=== PATIENT | female | born 1995 ===

== ENCOUNTER 2024-02-18 00:32 | Emergency (ER) | payer MEDICAID, SELFPAY ==
[2024-02-18 00:41] VITALS: BP 95/73; PULSE 72; RESP 16; TEMP 36.7; O2SAT 92; BMI 36.5
[2024-02-18 00:56] LABS: MANUAL DIFF FLAG NO
[2024-02-18 00:58] LABS: Basophils Percent Auto 0.2 % (0-2); Eosinophils Absolute Auto 0.2 X10*3/uL (0.0-0.4); Eosinophils Percent Auto 1.7 % (0-4); Hematocrit 35.4 % (37.0-47.0); Hemoglobin 12.3 g/dl (12.0-16.0); Imm Gran Abs Auto 0.04 X10*3/uL (0.00-0.03); Imm Gran Pct Auto 0.3 % (0.0-0.4); Lymphocytes Absolute Auto 2.5 X10*3/uL (1.2-4.9); Lymphocytes Percent Auto 18.5 % (20-40); Mean Corpuscular HGB Conc 34.7 g/dl (31.0-35.0); Mean Corpuscular Hemoglobin 32.3 pg (27.0-33.0); Mean Corpuscular Volume 92.9 fL (80.0-98.0); Mean Platelet Volume 10.1 fL (9.4-12.3); Monocytes Absolute Auto 1.4 X10*3/uL (0.1-1.2); Monocytes Percent Auto 10.2 % (2-11); Neutrophils Absolute Auto 9.2 x10*3/uL (2.0-8.3); Neutrophils Percent Auto 69.1 % (45-73); Platelet Count 281 X10*3/uL (160-400); Red Blood Count 3.81 X10*6/uL (4.20-5.50); Red Cell Distribution Width 13.6 % (11.0-16.0); White Blood Count 13.3 X10*3/uL (4.8-10.8)
[2024-02-18 01:08] LABS: IDNOW Serial# 08D9AD1C; Strep A Nucleic Acid Negative (Negative)
[2024-02-18 01:22] LABS: Alanine Aminotransferase 14 U/L (0-31); Albumin Level 3.8 g/dL (3.5-5.0); Alkaline Phosphatase 65 U/L (39-117); Anion Gap 14 (12-20); Aspartate Amino Transferase 15 U/L (5-31); Bilirubin Total 0.2 mg/dL (0.0-1.0); Blood Urea Nitrogen 21 mg/dL (9-16); Calcium 8.8 mg/dL (8.4-10.2); Carbon Dioxide 21 mmol/L (22-29); Chloride 104 mmol/L (96-108); Creatinine Clr Calc Pharmacy 115.5; Estimated Glomerular Filt Rate > 60; Glucose Random 92 mg/dL (60-115); Potassium 3.6 mmol/L (3.3-5.1); Sodium 135 mmol/L (135-145); Total Protein 7.3 g/dL (6.5-8.0)
[2024-02-18 01:36] LABS: Influenza A PCR NEGATIVE (Negative); Influenza B PCR NEGATIVE (Negative); Resp Syncy Virus RNA Qual PCR NEGATIVE (Negative); SARS COV2 PCR INHOUSE NEGATIVE (Negative)
--- NOTE | 2024-02-18 02:08 | ED_ITS ---
HPI - URI/Sore Throat General Chief Complaint: Upper Respiratory Symptoms Stated Complaint: sore throat/head hurts Time Seen by Provider: 02/18/24 01:48 Source: patient Mode of arrival: ambulatory Limitations: no limitations History of Present Illness HPI Narrative: Patient complaining of sore throat for last 1 week getting worse low-grade fever occasional cough no shortness of breath no rhinorrhea Related Data Allergies Allergy/AdvReac Type Severity Reaction Status Date / Time aspirin Allergy Rash Verified 02/18/24 00:41 Review of Systems 2 Review of Systems: Yes all other systems are reviewed and are negative [facility] Social History Social History Advance Directives: No Advance Directives Information Provided: Yes Physical Exam 2 Vital Signs: Vital Signs: Last Vital Signs Temp 98.1 F 02/18/24 00:41 Pulse 72 02/18/24 00:41 Resp 16 02/18/24 00:41 BP 95/73 02/18/24 00:41 Pulse Ox 92 02/18/24 00:41 O2 Del Method Room Air 02/18/24 00:41 BMI result Body Mass Index 36.5 Appearance: Alert. Oriented X3. No acute distress. ENT: Pharynx erythematous with enlarged tonsils Oral Mucosa moist Neck: Normal inspection. Neck supple. CVS: Normal heart rate and rhythm. Pulses normal. Respiratory: No respiratory distress. Equal air entry bilateral, no wheezing/rales/rhonchi Abdomen: Soft and nontender. Skin: Skin warm and dry. Normal skin color. Normal skin turgor. Neuro: Oriented X 3. Medical Decision Making Lab Data [facility] Lab Attestation statement: I reviewed the patient's lab results. 02/18/24 00:51 02/18/24 00:51 Labs: Lab Results 02/18/24 Range/Units 00:51 WBC 13.3 H (4.8-10.8) X10*3/uL RBC 3.81 L (4.20-5.50) X10*6/uL Hgb 12.3 (12.0-16.0) g/dl Hct 35.4 L (37.0-47.0) % MCV 92.9 (80.0-98.0) fL MCH 32.3 (27.0-33.0) pg MCHC 34.7 (31.0-35.0) g/dl RDW 13.6 (11.0-16.0) % Plt Count 281 (160-400) X10*3/uL MPV 10.1 (9.4-12.3) fL Immature Gran % (Auto) 0.3 (0.0-0.4) % Neut % (Auto) 69.1 (45-73) % Lymph % (Auto) 18.5 L (20-40) % [place] % (Auto) 10.2 (2-11) % Eos % (Auto) 1.7 (0-4) % Baso % (Auto) 0.2 (0-2) % Lymph # (Auto) 2.5 (1.2-4.9) X10*3/uL [place] # (Auto) 1.4 H (0.1-1.2) X10*3/uL Eos # (Auto) 0.2 (0.0-0.4) X10*3/uL Baso # (Auto) 0.0 (0.0-0.2) X10*3/uL Abs Immat Gran (auto) 0.04 H (0.00-0.03) X10*3/uL Absolute Neuts (auto) 9.2 H (2.0-8.3) x10*3/uL Absolute Nucleated RBC 0.000 (0.0-0.012) X10*3/uL Nucleated RBC % (auto) 0.0 (0.0-0.2) /100WBC Sodium 135 (135-145) mmol/L Potassium 3.6 (3.3-5.1) mmol/L Chloride 104 (96-108) mmol/L Carbon Dioxide 21 L (22-29) mmol/L Anion Gap 14 (12-20) BUN 21 H (9-16) mg/dL Creatinine 0.78 (0.5-1.4) mg/dL Estim Creat Clear Calc 115.5 Estimated GFR > 60 Random Glucose 92 (60-115) mg/dL Calcium 8.8 (8.4-10.2) mg/dL Total Bilirubin 0.2 (0.0-1.0) mg/dL AST 15 (5-31) U/L ALT 14 (0-31) U/L Alkaline Phosphatase 65 (39-117) U/L Total Protein 7.3 (6.5-8.0) g/dL Albumin 3.8 (3.5-5.0) g/dL Influenza Type A (PCR) NEGATIVE (Negative) Influenza Type B (PCR) NEGATIVE (Negative) RSV RNA Qual (PCR) NEGATIVE (Negative) SARS-CoV-2 RNA (RT-PCR) NEGATIVE (Negative) S. pyogenes GrpA MERLE Negative (Negative) Discharge Plan Discharge Clinical Impression: Pharyngitis Patient Disposition: Home, Self-Care Instructions: Pharyngitis (ED) Additional Instructions: Drink plenty of fluids Take antibiotic as prescribed Follow with PCP if not better Print Language: Danish
[2024-02-18 02:55] LABS: Monotest Negative (Negative)
[2024-02-18] MEDS: Amoxicillin/Potassium Clav 875 MG TABLET PO (03:18)
[2024-02-18 03:20] VITALS: BP 100/60; PULSE 70; RESP 16; TEMP 36.8; O2SAT 98
== END 2024-02-18 03:20 | disposition home or self-care (01) ==
PROVIDERS: Emergency Provider Internal Medicine
DX: J02.9 Acute pharyngitis, unspecified (principal); R05.9 Cough, unspecified; Z03.818 Encounter for observation for suspected exposure to other biological agents ruled out
CPT/HCPCS: 0241U; 36415; 80053; 85025; 86308; 87651; 99282; 99283

== ENCOUNTER 2024-07-03 16:59 | Emergency (ER) | payer MEDICAID, SELFPAY ==
--- NOTE | ~2024-07-03 | CT_ITS ---
EXAMINATION: CT ABDOMEN AND PELVIS WITHOUT CONTRAST CLINICAL INFORMATION: Left flank pain and renal colic. COMPARISON: None available. TECHNIQUE: Multidetector volumetric imaging was performed from the superior aspect of the liver through the pubic symphysis. Sagittal and coronal reformatted images were obtained on the technologist's workstation. This CT examination was performed using dose optimization techniques as appropriate, variously including the following: *Automated exposure control *Adjustment of mA and/or kV according to patient size (this includes techniques or standardized protocols for targeted exams where dose is matched to indication/reason for exam; i.e. extremities or head) *Use of iterative reconstruction technique DLP: 526 mGy-cm FINDINGS: LUNG BASES: There is bibasilar mosaic perfusion. LIVER, GALLBLADDER, AND BILIARY TREE: The liver is normal in size, shape, and attenuation. No focal hepatic lesion or biliary ductal dilatation is present. The gallbladder is unremarkable with no evidence of radiopaque gallstones, gallbladder wall thickening, or obvious pericholecystic inflammatory changes. PANCREAS: Unremarkable. SPLEEN: Unremarkable. ADRENAL GLANDS: Unremarkable. KIDNEYS AND URETERS: The kidneys are normal in size, shape, and attenuation. No right hydronephrosis, hydroureter, or calculi seen. No right perinephric stranding. There is moderate left hydronephrosis and pelviectasis secondary to a 5 mm calculus at the left ureteropelvic junction (2:40). There is vigorous left perinephric and peripelvic stranding. BLADDER: Unremarkable. GASTROINTESTINAL TRACT: There is a moderate stool burden. No obstruction, free intraperitoneal air or abscess is seen. There is no focal bowel wall thickening. No diverticulosis or diverticulitis is seen. The vermiform appendix is not identified with certainty; however, there is no finding to suggest appendicitis. ABDOMINAL WALL: There is a mild diastases rectus. There is a tiny fat-containing umbilical hernia. There is a small fat-containing left inguinal hernia LYMPH NODES: There are shotty, nonpathologically enlarged periportal, mesenteric, pericecal, para-aortic and bilateral inguinal lymph nodes. One of the largest of these is located in the left perinephric region, with a short axis diameter of 7 mm (2:39). No sizable abdominopelvic lymphadenopathy is seen. VASCULAR: Unremarkable. PELVIC VISCERA: The uterus and adnexa are unremarkable. A 2.6 cm benign, simple left ovarian cyst is seen, with precontrast Hounsfield value of 10.5 units. OSSEOUS STRUCTURES: Unremarkable. CT/CT abdomen pelvis wo IV con IMPRESSION: 1. There is moderate left hydronephrosis and pelviectasis secondary to a 5 mm calculus at the left ureteropelvic junction. 2. There are shotty abdominopelvic lymph nodes, as detailed above. These are nonspecific and should be managed on a clinical basis. No sizable abdominopelvic lymphadenopathy is seen. 3. There is a mosaic attenuation pattern at the bilateral lung bases, which can be associated with obstructive small airways disease. Fleischner guidelines were followed. Electronically signed by: Amando Mariano MD 07/03/2024 08:51 PM EDT RP
[2024-07-03 18:01] VITALS: BP 138/77; PULSE 102; RESP 16; TEMP 37.3; O2SAT 100; BMI 28.8
--- NOTE | 2024-07-03 18:11 | ED.GENADULT ---
HPI - General Adult General Chief complaint: General Medical Stated complaint: headache, teeth pain, nausea Related Data Previous Rx's ?Medication ?Instructions ?Recorded amoxicillin 875 mg-potassium 1 tab PO BID #20 tabs 02/18/24 clavulanate 125 mg tablet cefuroxime axetil 250 mg tablet 250 mg PO BID 7 days #14 tabs 07/04/24 ibuprofen 600 mg tablet 600 mg PO Q6H PRN fever or pain 07/04/24 #30 tabs oxycodone 5 mg tablet 5 mg PO Q6H PRN pain #20 tabs 07/04/24 tamsulosin 0.4 mg capsule (Flomax) 0.4 mg PO BEDTIME #7 caps 07/04/24 Allergies Allergy/AdvReac Type Severity Reaction Status Date / Time aspirin Allergy Rash Verified 07/04/24 04:53 [facility] Social History Social History Alcohol intake: current Alcohol intake frequency: a few times a month Smoked in Last 30 Days: No Use of substances other than those prescribed or required for medical reasons: No Advance Directives: No Do you have a plan to hurt others: No Plan Physical Exam ED Vital Signs: Vital Signs - 24 hr 07/03/24 18:01 07/03/24 20:33 Temperature 99.1 F 98.6 F Pulse Rate 102 H 111 H Respiratory Rate 16 16 Blood Pressure 138/77 143/86 H Pulse Oximetry 100 Oxygen Delivery Method Room Air BMI result Body Mass Index 28.8 Course Course Course Narrative: Rapid medical exam performed by Selena Melendez PA-C. 28-year-old female presents with left flank pain x1 day. Pain over left flank radiates to low back. Increased dysuria, urinary frequency, and a headache. Denies obvious hematuria, discoloration of urine, or history of prior kidney stones. On exam, the patient's abdomen is soft, nondistended nontender. She is overall well in appearance. Ordering a CT scan, a dry scan, to rule out renal colic. Screening basic labs, urinalysis and . Patient will return to the weight room pending her full assessment. Reevaluation(s) Reevaluation #1: The patient left without completing their assessment Medical Decision Making Lab Data 07/03/24 18:27 07/03/24 18:27 Labs: Lab Results 07/03/24 Range/Units 18:27 WBC 13.5 H (4.8-10.8) X10*3/uL RBC 4.10 L (4.20-5.50) X10*6/uL Hgb 11.7 L (12.0-16.0) g/dl Hct 33.6 L (37.0-47.0) % MCV 82.0 (80.0-98.0) fL MCH 28.5 (27.0-33.0) pg MCHC 34.8 (31.0-35.0) g/dl RDW 14.6 (11.0-16.0) % Plt Count 217 (160-400) X10*3/uL MPV 10.7 (9.4-12.3) fL Immature Gran % (Auto) 0.4 (0.0-0.4) % Neut % (Auto) 85.1 H (45-73) % Lymph % (Auto) 9.6 L (20-40) % [place] % (Auto) 3.8 (2-11) % Eos % (Auto) 0.7 (0-4) % Baso % (Auto) 0.4 (0-2) % Lymph # (Auto) 1.3 (1.2-4.9) X10*3/uL [place] # (Auto) 0.5 (0.1-1.2) X10*3/uL Eos # (Auto) 0.1 (0.0-0.4) X10*3/uL Baso # (Auto) 0.1 (0.0-0.2) X10*3/uL Abs Immat Gran (auto) 0.05 H (0.00-0.03) X10*3/uL Absolute Neuts (auto) 11.5 H (2.0-8.3) x10*3/uL Absolute Nucleated RBC 0.000 (0.0-0.012) X10*3/uL Nucleated RBC % (auto) 0.0 (0.0-0.2) /100WBC Sodium 135 (135-145) mmol/L Potassium 3.3 (3.3-5.1) mmol/L Chloride 106 (96-108) mmol/L Carbon Dioxide 24 (22-29) mmol/L Anion Gap 8 L (12-20) BUN 8 L (9-16) mg/dL Creatinine 0.76 (0.5-1.4) mg/dL Estim Creat Clear Calc 105.0 Estimated GFR > 60 Random Glucose 130 H (60-115) mg/dL Calcium 9.3 (8.4-10.2) mg/dL Magnesium 1.7 (1.6-2.6) mg/dL Total Bilirubin 0.7 (0.0-1.0) mg/dL AST 12 (5-31) U/L ALT 11 (0-31) U/L Alkaline Phosphatase 73 (39-117) U/L Total Protein 7.3 (6.5-8.0) g/dL Albumin 3.7 (3.5-5.0) g/dL Lipase 14 (8-78) U/L Beta HCG, Quant < 2 mIU/mL Urine Color Yellow Urine Appearance Clear Urine pH 6.0 (5.0-9.0) Ur Specific [place] <= 1.005 (1.005-1.025) Urine Protein Negative (Neg-Trace) mg/dL Urine Glucose (UA) Negative (Negative) mg/dL Urine Ketones Negative (Negative) mg/dL Urine Blood Small (1+) H (Negative) Urine Nitrite Negative (Negative) Ur Leukocyte Esterase Moderate (2+) H (Negative) Urine RBC 0-2 (0-2) /HPF Urine WBC 6-10 (0-5) /HPF Ur Squamous Epith Cells 0-2 (0-2) /HPF Urine Bacteria 2+ (None Seen) Hyaline Casts 3-5 (0-2) /LPF Discharge Plan Discharge Clinical Impression: Back pain Patient Disposition: Left W/O Completing Treatment Prescriptions: No Action ibuprofen 600 mg tablet 600 mg PO Q6H PRN (Reason: fever or pain) Qty: 30 0RF oxycodone 5 mg tablet 5 mg PO Q6H PRN (Reason: pain) Qty: 20 0RF Rx Instructions: Partial Fill upon patient request. tamsulosin [Flomax] 0.4 mg capsule 0.4 mg PO BEDTIME Qty: 7 0RF cefuroxime axetil 250 mg tablet 250 mg PO BID 7 Days Qty: 14 0RF amoxicillin-pot clavulanate 875-125 mg tablet 1 tab PO BID Qty: 20 0RF Discharge Date/Time: 07/04/24 00:36
[2024-07-03 18:32] LABS: MANUAL DIFF FLAG NO
[2024-07-03 18:38] LABS: Basophils Absolute Auto 0.1 X10*3/uL (0.0-0.2); Basophils Percent Auto 0.4 % (0-2); Eosinophils Absolute Auto 0.1 X10*3/uL (0.0-0.4); Eosinophils Percent Auto 0.7 % (0-4); Hematocrit 33.6 % (37.0-47.0); Hemoglobin 11.7 g/dl (12.0-16.0); Imm Gran Abs Auto 0.05 X10*3/uL (0.00-0.03); Imm Gran Pct Auto 0.4 % (0.0-0.4); Lymphocytes Absolute Auto 1.3 X10*3/uL (1.2-4.9); Lymphocytes Percent Auto 9.6 % (20-40); Mean Corpuscular HGB Conc 34.8 g/dl (31.0-35.0); Mean Corpuscular Hemoglobin 28.5 pg (27.0-33.0); Mean Platelet Volume 10.7 fL (9.4-12.3); Monocytes Absolute Auto 0.5 X10*3/uL (0.1-1.2); Monocytes Percent Auto 3.8 % (2-11); Neutrophils Absolute Auto 11.5 x10*3/uL (2.0-8.3); Neutrophils Percent Auto 85.1 % (45-73); Platelet Count 217 X10*3/uL (160-400); Red Cell Distribution Width 14.6 % (11.0-16.0); White Blood Count 13.5 X10*3/uL (4.8-10.8)
[2024-07-03 19:01] LABS: Alanine Aminotransferase 11 U/L (0-31); Albumin Level 3.7 g/dL (3.5-5.0); Alkaline Phosphatase 73 U/L (39-117); Anion Gap 8 (12-20); Aspartate Amino Transferase 12 U/L (5-31); Bilirubin Total 0.7 mg/dL (0.0-1.0); Blood Urea Nitrogen 8 mg/dL (9-16); Calcium 9.3 mg/dL (8.4-10.2); Carbon Dioxide 24 mmol/L (22-29); Chloride 106 mmol/L (96-108); Estimated Glomerular Filt Rate > 60; Glucose Random 130 mg/dL (60-115); Lipase 14 U/L (8-78); Magnesium 1.7 mg/dL (1.6-2.6); Potassium 3.3 mmol/L (3.3-5.1); Sodium 135 mmol/L (135-145); Total Protein 7.3 g/dL (6.5-8.0)
[2024-07-03 19:02] LABS: Appearance Urine Clear; Color Urine Yellow; Glucose Urine UA Negative (Negative); Leukocyte Esterase Urine Moderate (2+) (Negative); Nitrite Urine Negative (Negative); Specific Gravity - Urine <= 1.005 (1.005-1.025); UMIC TRIGGER UACC YES; Urine Blood Small (1+) (Negative); Urine Ketones Negative (Negative); Urine Protein Negative (Neg-Trace)
[2024-07-03 19:05] LABS: HCG Quantitative < 2 mIU/mL
[2024-07-03 19:14] LABS: Bacteria Urine 2+ (None Seen); RBC Urine 0-2 /HPF (0-2); Squamous Epithelial Cell Urine 0-2 /HPF (0-2); UACC Culture Trigger YES
[2024-07-03 20:33] VITALS: BP 143/86; PULSE 111; RESP 16; TEMP 37
--- NOTE | 2024-07-04 00:31 | PC.NURSE ---
pt left without alerting staff, no answer when called for room
== END 2024-07-04 00:36 | disposition left against medical advice (07) ==
LOC: HO.ED 07-04 00:34
PROVIDERS: Physician Assistant Medical; Emergency Provider Emergency Medicine
DX: M54.50 Low back pain, unspecified (principal); N23 Unspecified renal colic
CPT/HCPCS: 36415; 74176; 80053; 81001; 81003; 83690; 83735; 84702; 85025; 87086; 87088; 87186; 99282; 99284

== ENCOUNTER 2024-07-04 04:46 | Emergency (ER) | payer MEDICAID, SELFPAY ==
[2024-07-04 04:47] VITALS: BP 144/73; PULSE 150; RESP 18; TEMP 36.7; O2SAT 100; BMI 31.4
--- NOTE | 2024-07-04 05:13 | ECG_ITS ---
Test Reason : TACARDYA Blood Pressure : / mmHG Vent. Rate : 109 BPM Atrial Rate : 109 BPM P-R Int : 120 ms QRS Dur : 084 ms QT Int : 320 ms P-R-T Axes : 029 040 127 degrees QTc Int : 430 ms Sinus tachycardia T wave abnormality, consider lateral ischemia Abnormal ECG No previous ECGs available Referred By: Generic ED Physician Electronically Signed By:KELSEY BHATT
--- NOTE | 2024-07-04 05:24 | MHC.EDTECH ---
This pct just assumed care of Patient ,ekg taken and was read by Provider ,Patient was hooked up to potline monitor .
--- NOTE | 2024-07-04 05:25 | ED.ABDPAIN ---
HPI - Abdominal Pain General Chief Complaint: Abdominal Pain Stated Complaint: pain in the back of head and shoulder Time Seen by Provider: 07/04/24 05:24 Source: patient Mode of arrival: ambulatory Limitations: no limitations History of Present Illness ED Provider: tracy WOOD narrative: Patient with no significant past medical history complaining of pain in the left flank area since yesterday was triaged yesterday and left without being seen CT scan was done which showed 5 mm obstructive UPJ stone with hydro no prior history of kidney stones patient denied any urinary complaints no hematuria patient has been having nausea and been vomiting and pain is getting worse now Related Data Previous Rx's ?Medication ?Instructions ?Recorded amoxicillin 875 mg-potassium 1 tab PO BID #20 tabs 02/18/24 clavulanate 125 mg tablet cefuroxime axetil 250 mg tablet 250 mg PO BID 7 days #14 tabs 07/04/24 ibuprofen 600 mg tablet 600 mg PO Q6H PRN fever or pain 07/04/24 #30 tabs oxycodone 5 mg tablet 5 mg PO Q6H PRN pain #20 tabs 07/04/24 tamsulosin 0.4 mg capsule (Flomax) 0.4 mg PO BEDTIME #7 caps 07/04/24 Allergies Allergy/AdvReac Type Severity Reaction Status Date / Time aspirin Allergy Rash Verified 07/04/24 04:53 Review of Systems Review of Systems Yes all other systems are reviewed and are negative REPLACED BY [facility] Social History Social History Alcohol intake: current Alcohol intake frequency: a few times a month Smoked in Last 30 Days: No Use of substances other than those prescribed or required for medical reasons: No Advance Directives: No Do you have a plan to hurt others: No Plan Physical Exam ED Vital Signs: Vital Signs - 24 hr 07/04/24 04:47 07/04/24 05:37 07/04/24 06:05 Temperature 98.1 F 98.7 F Pulse Rate 150 H 100 106 H Respiratory Rate 18 20 Blood Pressure 144/73 H 101/55 L Pulse Oximetry 100 100 Oxygen Delivery Method Room Air Room Air BMI result Body Mass Index 31.4 Appearance: Alert. Oriented X3. No acute distress. Eyes: No pallor or icterus ENT: Pharynx normal. Oral Mucosa moist Neck: Normal inspection. Neck supple. CVS: Normal heart rate and rhythm. Pulses normal. Respiratory: No respiratory distress. Equal air entry bilateral, no wheezing/rales/rhonchi Abdomen: Soft and nontender. Bowel sounds are present, no mass palpable, left CVA tenderness ++ Skin: Skin warm and dry. Normal skin color. Normal skin turgor. Extremities: No lower extremity edema. No calf tenderness Neuro: Oriented X 3. Medical Decision Making Medical Decision Making [facility] Narrative: Patient's 5 mm proximal UPJ stone on the left side feeling better after IV hydration pain medication will discharge patient home on pain management and advised to follow with urologist Differential Diagnosis Differential Diagnoses: The differential diagnosis associated with the presentation includes UTI/pyelonephritis/kidney stone Admission/Observation Consideration of admission/observation: Escalation of care including admission/observation considered Lab Data [facility] Lab Attestation statement: I reviewed the patient's lab results. Independent Interpretation I performed an independent interpretation of an: CT Scan Radiology Impression Discussion of test interpretation with radiology: I have reviewed the radiologist's reading. Radiologist Impression: [place] [id number] CT Scan Report Signed Patient: Sheryl Schrader MR#: [id number] : 1995 Acct:[id number] Age/Sex: 28 / F ADM Date: 07/03/24 Loc: .ED Attending Dr: Ordering Physician: Selena Melendez Date of Service: 07/03/24 Procedure(s): CT abdomen pelvis wo IV con Accession Number(s): [id number] cc: Selena Melendez; Physician,Unknown ~ EXAMINATION: CT ABDOMEN AND PELVIS WITHOUT CONTRAST CLINICAL INFORMATION: Left flank pain and renal colic. COMPARISON: None available. TECHNIQUE: Multidetector volumetric imaging was performed from the superior aspect of the liver through the pubic symphysis. Sagittal and coronal reformatted images were obtained on the technologist's workstation. This CT examination was performed using dose optimization techniques as appropriate, variously including the following: *Automated exposure control *Adjustment of mA and/or kV according to patient size (this includes techniques or standardized protocols for targeted exams where dose is matched to indication/reason for exam; i.e. extremities or head) *Use of iterative reconstruction technique DLP: 526 mGy-cm FINDINGS: LUNG BASES: There is bibasilar mosaic perfusion. LIVER, GALLBLADDER, AND BILIARY TREE: The liver is normal in size, shape, and attenuation. No focal hepatic lesion or biliary ductal dilatation is present. The gallbladder is unremarkable with no evidence of radiopaque gallstones, gallbladder wall thickening, or obvious pericholecystic inflammatory changes. PANCREAS: Unremarkable. SPLEEN: Unremarkable. ADRENAL GLANDS: Unremarkable. KIDNEYS AND URETERS: The kidneys are normal in size, shape, and attenuation. No right hydronephrosis, hydroureter, or calculi seen. No right perinephric stranding. There is moderate left hydronephrosis and pelviectasis secondary to a 5 mm calculus at the left ureteropelvic junction (2:40). There is vigorous left perinephric and peripelvic stranding. BLADDER: Unremarkable. GASTROINTESTINAL TRACT: There is a moderate stool burden. No obstruction, free intraperitoneal air or abscess is seen. There is no focal bowel wall thickening. No diverticulosis or diverticulitis is seen. The vermiform appendix is not identified with certainty; however, there is no finding to suggest appendicitis. ABDOMINAL WALL: There is a mild diastases rectus. There is a tiny fat-containing umbilical hernia. There is a small fat-containing left inguinal hernia LYMPH NODES: There are shotty, nonpathologically enlarged periportal, mesenteric, pericecal, para-aortic and bilateral inguinal lymph nodes. One of the largest of these is located in the left perinephric region, with a short axis diameter of 7 mm (2:39). No sizable abdominopelvic lymphadenopathy is seen. VASCULAR: Unremarkable. PELVIC VISCERA: The uterus and adnexa are unremarkable. A 2.6 cm benign, simple left ovarian cyst is seen, with precontrast Hounsfield value of 10.5 units. OSSEOUS STRUCTURES: Unremarkable. CT/CT abdomen pelvis wo IV con IMPRESSION: 1. There is moderate left hydronephrosis and pelviectasis secondary to a 5 mm calculus at the left ureteropelvic junction. 2. There are shotty abdominopelvic lymph nodes, as detailed above. These are nonspecific and should be managed on a clinical basis. No sizable abdominopelvic lymphadenopathy is seen. 3. There is a mosaic attenuation pattern at the bilateral lung bases, which can be associated with obstructive small airways disease. Fleischner guidelines were followed. Electronically signed by: Amando Mariano MD 07/03/2024 08:51 PM EDT RP Medications Administered Discontinued Medications Generic Name Dose Route Start Last Admin Trade Name Freq PRN Reason Stop Dose Admin Sodium Chloride 1,000 mls @ 999 mls/hr 07/04/24 05:25 07/04/24 06:36 Ns IV 07/04/24 06:25 Infused .Q1H1M ONE Infusion Ceftriaxone Sodium 1 gm/ 50 mls @ 100 mls/hr 07/04/24 06:09 07/04/24 06:29 Sodium Chloride IV 07/04/24 06:38 100 mls/hr ONCE ONE Administration Ketorolac Tromethamine 30 mg 07/04/24 05:25 07/04/24 05:33 Ketorolac Tromethamine 30 Mg/Ml Vial IVPUSH 07/04/24 05:26 30 mg ONCE ONE Administration Morphine Sulfate 4 mg 07/04/24 05:25 07/04/24 05:33 Morphine Sulfate 4 Mg/Ml Cartridge IVPUSH 07/04/24 05:26 4 mg ONCE ONE Administration Protocol Ondansetron HCl 4 mg 07/04/24 05:25 07/04/24 05:33 Ondansetron Hcl 4 Mg/2 Ml Vial IVPUSH 07/04/24 05:26 4 mg ONCE ONE Administration Tamsulosin HCl 0.4 mg 07/04/24 06:14 07/04/24 06:30 Tamsulosin Hcl 0.4 Mg Capsule PO 07/04/24 06:15 0.4 mg ONCE ONE Administration Discharge Plan Discharge Clinical Impression: Kidney stone on left side, Urinary tract infection Patient Disposition: Home, Self-Care Instructions: Kidney Stones (ED), Urinary Tract Infection in Women (ED) Additional Instructions: Drink plenty of fluids Take antibiotics as prescribed Pain medication as prescribed Flomax daily passed the stone It is likely you will passed the stone Follow with urologist if pain continues Prescriptions: New ibuprofen 600 mg tablet 600 mg PO Q6H PRN (Reason: fever or pain) Qty: 30 0RF oxycodone 5 mg tablet 5 mg PO Q6H PRN (Reason: pain) Qty: 20 0RF Rx Instructions: Partial Fill upon patient request. tamsulosin [Flomax] 0.4 mg capsule 0.4 mg PO BEDTIME Qty: 7 0RF cefuroxime axetil 250 mg tablet 250 mg PO BID 7 Days Qty: 14 0RF No Action amoxicillin-pot clavulanate 875-125 mg tablet 1 tab PO BID Qty: 20 0RF Referrals: Fausto Sloan MD [Physician] - 2 days Print Language: Nigerian
[2024-07-04] MEDS: 0.9 % Sodium Chloride 1,000 ML 999 ML IV (05:32)
[2024-07-04] MEDS: Ketorolac Tromethamine 30 MG/ML VIAL IVPUSH (05:33)
[2024-07-04] MEDS: Morphine Sulfate 4 MG/ML CARTRIDGE IVPUSH (05:33)
[2024-07-04] MEDS: ondansetron HCL 4 MG/2 ML VIAL IVPUSH (05:33)
[2024-07-04 05:37] VITALS: PULSE 100
--- NOTE | 2024-07-04 05:40 | PC.NURSE ---
pt is alert and oriented, skin appropriate for ethnicity, respirations even and unlabored, pt reports left sided flank pain that comes and goes since Tuesday, with some intermitted nausea as well. no urinary symptoms, pt was found to have an elevated heart rate in triage, pt put on a portable heart monitor and currently hr ranges in the low 100's.
[2024-07-04 06:05] VITALS: BP 101/55; PULSE 106; RESP 20; TEMP 37.1; O2SAT 100
[2024-07-04] MEDS: cefTRIAXone sodium 1 GM in 0.9 % Sodium Chloride 50 ML IV (06:29)
[2024-07-04] MEDS: Tamsulosin HCL 0.4 MG CAPSULE PO (06:30)
[2024-07-04 07:17] VITALS: BP 108/54; PULSE 102; RESP 15; TEMP 36.8; O2SAT 98
[2024-07-04] MEDS: Acetaminophen 325 MG TABLET 975 MG PO (07:44)
[2024-07-04 08:01] VITALS: BP 108/54; PULSE 102; RESP 15; TEMP 36.8; O2SAT 98
== END 2024-07-04 08:01 | disposition home or self-care (01) ==
PROVIDERS: Emergency Provider Internal Medicine
DX: N13.2 Hydronephrosis with renal and ureteral calculous obstruction (principal); N39.0 Urinary tract infection, site not specified; R00.0 Tachycardia, unspecified
CPT/HCPCS: 93005; 96361; 96365; 96375; 99285; J0696; J1885; J2270; J2405